=== PATIENT | female | born 1950 | race Caucasian/White ===

== ENCOUNTER 2018-01-22 10:09 | Day surgery (SDC) | payer MEDICARE, OTHER ==
[~2018-01-22] VITALS: Ht 157.5 cm; Wt 84.2 kg
[~2018-01-22 10:09] MED LIST: ATEN25; BAYER CHEWABLE81 MG; BUSP10; ETOD200; FISH OIL 1,0001 EAC1; PANT20; Synthroid25 MCG; Vitamin D400 UNI1
== END 2018-01-22 11:37 | disposition home or self-care (01) ==
LOC: ORSCSDS 10:09
PROVIDERS: Internal Medicine Gastroenterology
PROC: 0DB58ZX Excision of Esophagus, Via Natural or Artificial Opening Endoscopic, Diagnostic (ICD-10-PCS; principal; 2018-01-22 11:30)
PROC: 0DB68ZX Excision of Stomach, Via Natural or Artificial Opening Endoscopic, Diagnostic (ICD-10-PCS; principal; 2018-01-22 11:30)
DX: K21.9 Gastro-esophageal reflux disease without esophagitis (principal); K20.9 Esophagitis, unspecified; K25.9 Gastric ulcer, unspecified as acute or chronic, without hemorrhage or perforation; E11.9 Type 2 diabetes mellitus without complications; E03.9 Hypothyroidism, unspecified; F41.9 Anxiety disorder, unspecified; I10 Essential (primary) hypertension; Z79.82 Long term (current) use of aspirin; Z79.899 Other long term (current) drug therapy
CPT/HCPCS: 82947; 88305; 88342

== ENCOUNTER 2023-03-22 15:47 | Inpatient (IN) | payer MEDICARE, OTHER ==
[~2023-03-22] VITALS: Ht 157.5 cm; Wt 78.9 kg
[~2023-03-22 15:47] MED LIST changes: -Synthroid25 MCG; +Synthroid25 MCG PO
[2023-03-22 16:31] LABS: BASOPHILS ABSOLUTE AUTO 0.05 K/mm3 (0.00-0.23); BASOPHILS PERCENT AUTO 1 % (0-2); EOSINOPHILS ABSOLUTE AUTO 0.08 K/mm3 (0.00-0.68); EOSINOPHILS PERCENT AUTO 1 % (0-6); Hematocrit 36.7 % (33.0-51.0); IMMATURE GRAN ABSOLUTE AUTO 0.03 K/mm3 (0.00-0.10); IMMATURE GRAN PERCENT AUTO 0 % (0-1); LYMPHOCYTES ABSOLUTE AUTO 2.58 K/mm3 (0.84-5.20); LYMPHOCYTES PERCENT AUTO 26 % (21-46); MONOCYTES ABSOLUTE AUTO 0.72 K/mm3 (0.16-1.47); MONOCYTES PERCENT AUTO 7 % (4-13); Mean Corpuscular HGB 31.3 pg (26.0-34.0); Mean Corpuscular HGB Conc 32.7 g/dL (31.5-36.5); Mean Corpuscular Volume 96 fL (80-100); Mean Platelet Volume 10.5 fL (9.1-12.4); NEUTROPHILS ABSOLUTE AUTO 6.63 K/mm3 (1.96-9.15); NEUTROPHILS PERCENT AUTO 66 % (41-73); Platelet Count 228 K/mm3 (150-400); RDW Coefficient Variation 13.3 % (11.7-14.2); RDW Standard Deviation 47.1 fL (35.1-46.3); Red Blood Cell Count 3.84 M/mm3 (3.80-5.20); White Blood Cell Count 10.09 K/mm3 (4.00-11.30)
[2023-03-22 16:55] LABS: Albumin, Blood 3.5 g/dL (3.4-5.0); Albumin/Globulin Ratio 0.8 (0.8-1.8); Bilirubin, Total 0.4 mg/dL (0.1-1.0); Bun/Creatinine Ratio 12.3 (12.0-20.0); Calcium, Blood 9.4 mg/dL (8.5-10.1); Creatinine, Blood 1.14 mg/dL (0.40-1.00); Globulin, Blood 4.2 g/dL (2.2-4.0); Potassium, Blood 3.6 mmol/L (3.5-5.5); Total Protein, Blood 7.7 g/dL (6.4-8.2)
[2023-03-22 18:31] LABS: Source, Urine Clean Catch
[2023-03-22 18:38] LABS: Appearance, Urine Hazy (Clear); Bilirubin, Urine Neg (Neg); Blood, Urine 4+ (Neg); Color, Urine Yellow (P-Yellow); Glucose Qualitative, Urine Neg (Neg); Ketones, Urine Neg (Neg); Leukocyte Esterase, Urine Neg (Neg); Nitrite, Urine Neg (Neg); Protein, Urine 3+ (Neg); Urobilinogen, Urine NORM (Normal)
[2023-03-22 19:12] LABS: Amorphous Light (0-Heavy); Bacteria Many /hpf; Mucus Light (0-Heavy); Squamous Epithelial Cells Mod /hpf (Few); White Blood Cells, Urine 0-2 /hpf (0-5)
[2023-03-22] MEDS ORDERED: METOPROLOL SUCC25 MG PO (21:10)
[2023-03-22] MEDS ORDERED: Colace100 MG PO (23:13)
[2023-03-22 23:17] VITALS: BP 124/59
--- NOTE | 2023-03-23 03:50 | NUR ---
SHIFT SUMMARY NOC ADMIT FROM ED FROM [facility] WITH DX OF SIGMOID DIVERTICULITIS WITH INTRAMURAL ABCESS/UTI. PT RECEIVING IV ABX FOR BOTH, WELL 1L NS @ 75 ML/HR X 1. PT HAS REPORTED DISCOMFORT IN ABD SINCE ADMIT TO FLOOR BUT HAS DENIED PAIN. PT IS A/O X 4, INDEPENDENT IN ROOM, AND CONTINENT. PT IS NPO CURRENTLY RECEIVING IV FLUIDS. VSS. PT ON TELE RUNNING NSR IN 80'S. PT IS CURRENTLY RESTING WITH BED IN LOWEST POSITION, AND CALL LIGHT WITHIN REACH.
[2023-03-23 05:10] LABS: BASOPHILS ABSOLUTE AUTO 0.03 K/mm3 (0.00-0.23); BASOPHILS PERCENT AUTO 1 % (0-2); EOSINOPHILS ABSOLUTE AUTO 0.11 K/mm3 (0.00-0.68); EOSINOPHILS PERCENT AUTO 2 % (0-6); Hematocrit 31.9 % (33.0-51.0); Hemoglobin 10.4 g/dL (11.5-16.0); IMMATURE GRAN ABSOLUTE AUTO 0.02 K/mm3 (0.00-0.10); IMMATURE GRAN PERCENT AUTO 0 % (0-1); LYMPHOCYTES ABSOLUTE AUTO 2.01 K/mm3 (0.84-5.20); LYMPHOCYTES PERCENT AUTO 33 % (21-46); MONOCYTES ABSOLUTE AUTO 0.49 K/mm3 (0.16-1.47); MONOCYTES PERCENT AUTO 8 % (4-13); Mean Corpuscular HGB 31.5 pg (26.0-34.0); Mean Corpuscular HGB Conc 32.6 g/dL (31.5-36.5); Mean Corpuscular Volume 97 fL (80-100); Mean Platelet Volume 10.8 fL (9.1-12.4); NEUTROPHILS ABSOLUTE AUTO 3.43 K/mm3 (1.96-9.15); NEUTROPHILS PERCENT AUTO 56 % (41-73); Platelet Count 194 K/mm3 (150-400); RDW Coefficient Variation 13.3 % (11.7-14.2); RDW Standard Deviation 47.3 fL (35.1-46.3); White Blood Cell Count 6.09 K/mm3 (4.00-11.30)
[2023-03-23 05:55] LABS: Albumin, Blood 2.6 g/dL (3.4-5.0); Albumin/Globulin Ratio 0.8 (0.8-1.8); Bilirubin, Total 0.3 mg/dL (0.1-1.0); Bun/Creatinine Ratio 16.6 (12.0-20.0); Calcium, Blood 8.5 mg/dL (8.5-10.1); Creatinine, Blood 0.97 mg/dL (0.40-1.00); Globulin, Blood 3.4 g/dL (2.2-4.0); Potassium, Blood 3.7 mmol/L (3.5-5.5)
[2023-03-23 07:35] VITALS: BP 111/56
[2023-03-23 14:36] VITALS: BP 132/66
--- NOTE | 2023-03-23 15:11 | NUR ---
SHIFT SUMMARY MS HALL IS A&OX4. UP INDEPENDENTLY TO THE BATHROOM AND SITTING UP IN THE CHAIR. DIET WAS ADVANCED TO CLEAR LIQUID DIET, AFTER DRINKING HOT CHICKEN BROTH SHE SAID SHE HAS NO ABDOMINAL PAIN. ON TELEMETRY MONITORING IN SR, NO CALLS FROM [facility]. IVF CONTINUE AT 75CC/HR X1L. ACCUCHECK TESTED ON PT REQUEST SHE TESTS AT HOME FOR DM2 CONTROLLED ON DIET (130). CALL [facility] IN REACH.
[2023-03-23 19:48] VITALS: BP 126/62
[2023-03-24 04:47] VITALS: BP 129/59
[2023-03-24 04:59] LABS: Hematocrit 33.2 % (33.0-51.0); Hemoglobin 10.5 g/dL (11.5-16.0); Mean Corpuscular HGB 30.3 pg (26.0-34.0); Mean Corpuscular HGB Conc 31.6 g/dL (31.5-36.5); Mean Corpuscular Volume 96 fL (80-100); Mean Platelet Volume 10.4 fL (9.1-12.4); Platelet Count 180 K/mm3 (150-400); RDW Coefficient Variation 13.2 % (11.7-14.2); RDW Standard Deviation 46.1 fL (35.1-46.3); Red Blood Cell Count 3.46 M/mm3 (3.80-5.20); White Blood Cell Count 5.76 K/mm3 (4.00-11.30)
[2023-03-24 05:31] LABS: Bun/Creatinine Ratio 9.8 (12.0-20.0); Calcium, Blood 8.4 mg/dL (8.5-10.1); Creatinine, Blood 0.81 mg/dL (0.40-1.00); Potassium, Blood 3.7 mmol/L (3.5-5.5)
[2023-03-24 07:40] VITALS: BP 123/58
[2023-03-24 14:38] VITALS: BP 137/60
--- NOTE | 2023-03-24 15:23 | NUR ---
SHIFT SUMMARY MS HALL HAD A BOWEL MOVEMENT THIS AM. 3/10 LOWER ABDOMINAL PAIN AT TIMES, A LITTLE NAUSEA; MS HALL DOES NOT WANT MEDICATIONS FOR THE NAUSEA IT IS MILD. SHE IS TOLERATING CLEAR LIQUID DIET. UP INDEPENDENTLY TO THE BATHROOM. TELE SR/ST, NO CALLS FROM [facility] [employer]. BED LOW, CALL LIGHT IN REACH.
[2023-03-24 19:16] VITALS: BP 119/75
--- NOTE | 2023-03-25 04:00 | NUR ---
SHIFT SUMMARY NOC PT A/O X 4. PLEASANT AND COOPERATIVE WITH CARE. NO ACUTE CHANGES TO REPORT. PT REPORTING MINIMAL PAIN IN LLQ AND NO PAIN RX REQUESTED. ON TELE RUNNING NSR @ 84 BPM. STILL RECEIVING Q6H IV ABX. PT DIET CHANGES TO [facility] FOR BREAKFAST TO SEE HOW WELL PT CAN TOLERATE SOLIDS. PT POSSIBLE DISCHARGE SOON IF THEY CAN TOLERATE SOLIDS AND TRANSITION TO PO ABX. PT ALSO ADVISED TO F/U FOR SURGICAL CONSULT POST DISCHARGE DUE TO RECCURENT EPISODES OF DIVERTICULITIS. PT IS CURRENTLY RESTING WITH BED IN LOWEST POSITION, AND CALL LIGHT WITHIN REACH.
[2023-03-25 05:23] VITALS: BP 123/73
[2023-03-25 05:44] LABS: Hematocrit 33.2 % (33.0-51.0); Hemoglobin 10.6 g/dL (11.5-16.0); Mean Corpuscular HGB 30.8 pg (26.0-34.0); Mean Corpuscular HGB Conc 31.9 g/dL (31.5-36.5); Mean Corpuscular Volume 97 fL (80-100); Mean Platelet Volume 10.9 fL (9.1-12.4); Platelet Count 206 K/mm3 (150-400); RDW Coefficient Variation 13.2 % (11.7-14.2); RDW Standard Deviation 46.4 fL (35.1-46.3); Red Blood Cell Count 3.44 M/mm3 (3.80-5.20); White Blood Cell Count 6.17 K/mm3 (4.00-11.30)
[2023-03-25 06:08] LABS: Bun/Creatinine Ratio 7.2 (12.0-20.0); Calcium, Blood 8.7 mg/dL (8.5-10.1); Creatinine, Blood 0.83 mg/dL (0.40-1.00); Potassium, Blood 3.6 mmol/L (3.5-5.5)
[2023-03-25 07:38] VITALS: BP 131/67
[2023-03-25] MEDS ORDERED: LEVO750 PO (14:43)
--- NOTE | 2023-03-25 16:38 | NUR ---
DC 1445- PT LEFT IN STABLE CONDITION WHEN PICKED UP BY . PT BROUGHT DOWN IN WC AND LEFT WITH ALL BELONGINGS.
== END 2023-03-25 15:11 | disposition home or self-care (01) | DRG 392 ==
LOC: ER 15:47 → MEDS 22:55
PROVIDERS: Internal Medicine; Student in an Organized Health Care Education/Training Program; ADMIT Internal Medicine
DX: K57.20 Diverticulitis of large intestine with perforation and abscess without bleeding (principal); K21.9 Gastro-esophageal reflux disease without esophagitis; E03.9 Hypothyroidism, unspecified; E78.00 Pure hypercholesterolemia, unspecified; R00.0 Tachycardia, unspecified; Z88.8 Allergy status to other drugs, medicaments and biological substances; Z88.5 Allergy status to narcotic agent; Z91.018 Allergy to other foods; Z79.890 Hormone replacement therapy; Z79.899 Other long term (current) drug therapy; Z79.82 Long term (current) use of aspirin; Z90.710 Acquired absence of both cervix and uterus; Z98.890 Other specified postprocedural states; Z90.89 Acquired absence of other organs
CPT/HCPCS: 36415; 80048; 80053; 81001; 82947; 83690; 85025; 85027; 87086; 93005; 93010; 96374; 99285-25; A9270; J0295; J0744; J1650; J1885; J2405; J3010; J7030; J7050